=== PATIENT | female | born 1995 | race Caucasian/White ===

== ENCOUNTER 2019-05-15 22:29 | Emergency (ER) | payer SELFPAY ==
[~2019-05-15] VITALS: Ht 172.7 cm; Wt 83.9 kg
[2019-05-15 22:35] VITALS: BP 121/60
--- NOTE | 2019-05-15 22:35 | NUR ---
TO BED # 08 AMBULATORY
[2019-05-15] MEDS ORDERED: LIDOCAINE/EPI 1% 1:100000 20 ML VIAL INJ ONE (22:50)
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
--- NOTE | 2019-05-15 23:07 | NUR ---
ERMD AT BEDSIDE FOR PROCEDURE.
[2019-05-15] MEDS ORDERED: BACITRACIN OINT 500 UNITS/GM PKT TP ONE ×2 (23:15→23:17)
[2019-05-15 23:33] VITALS: BP 121/60
== END 2019-05-15 23:33 | disposition home or self-care (01) ==
LOC: MED 22:29
DX: S51.821A Laceration with foreign body of right forearm, initial encounter (principal); Y93.G1 Activity, food preparation and clean up; Y93.89 Activity, other specified; Y92.89 Other specified places as the place of occurrence of the external cause; Y99.8 Other external cause status
CPT/HCPCS: 12002; 90471; 90715; 99283; J2001

== ENCOUNTER 2019-06-12 16:04 | Emergency (ER) | payer BC ==
[~2019-06-12] VITALS: Ht 170.2 cm; Wt 75.7 kg
[2019-06-12 16:07] VITALS: BP 124/74
--- NOTE | 2019-06-12 16:20 | NUR ---
24 Y/O F C/C FEVER X3 DAYS WITH S/S OF FEELING COLD, TOOK IBUPROFEN WITH NO RELIEF. PT NKA. HX STRESS ATTACK, BRONCHITIS, KIDNEY INFECTION. NO RX. NO N/V/D. SIDE RAIL X1. FLU SHOT UP TO DATE; NO FAMILY SICK AT HOME. Addendum: 06/12/19 at 1627 by MEDOF PT C/C OF LLE PAIN X1 DAY. 12/20.
[2019-06-12 17:21] VITALS: BP 124/74
--- NOTE | 2019-06-12 17:21 | NUR ---
Patient discharged with v/s stable. Written and verbal after care instructions given and explained. Patient alert, oriented and verbalized understanding of instructions. Ambulatory with steady gait. All questions addressed prior to discharge. ID band removed. Patient advised to follow up with PMD. Rx of AMOXICILLIN, IBUPROFEN given. Patient educated on indication of medication including possible reaction and side effects. Opportunity to ask questions provided and answered.
== END 2019-06-12 17:21 | disposition home or self-care (01) ==
LOC: MED 16:04
DX: J03.90 Acute tonsillitis, unspecified (principal); F31.9 Bipolar disorder, unspecified; F90.9 Attention-deficit hyperactivity disorder, unspecified type; Z87.440 Personal history of urinary (tract) infections
CPT/HCPCS: 99283